=== PATIENT | male | born 1970 | race Caucasian/White ===

== ENCOUNTER 2016-09-13 21:08 | Emergency (ER) | payer OTHER ==
[2016-09-13] MEDS ORDERED: Lidocaine 1% 5ml(IM or SUTURE)(PAIN CLINIC) IJ ONE (21:32)
[2016-09-13] MEDS ORDERED: SULFAMETHOXAZOLE/TRIMETHOPRIM 1 EACH TABLET PO ONE (21:50)
--- NOTE | 2016-09-13 21:52 | ED Physician Documentation ---
Abscess - HISTORIAN Historian: patient - HPI Chief Complaint: Abscess Onset: days ago (5 days ago) Timing: worse Duration: worse Location: neck Context: Medication Exposure: none Context: Food Exposure: none Further Comments: yes (46 year old male patient presents with abscess on posterior neck. Patient states he had a "knot" on his neck, 5 days ago it became red and swollen. States it has doubled in size in the past 24 hours, now has white heads. No history of MRSA.) - ROS CONST: none CVS/RESP: none EYES/ENT: none GI/: none MS/SKIN/LYMPH: none NEURO/PSYCH: none - PAST HX Past History: none Other History: none Allergies/Adverse Reactions: Allergies Allergy/AdvReac Type Severity Reaction Status Date / Time No Known Drug Allergies Allergy Unverified 07/08/14 14:26 - SOCIAL HX Smoking History: cigarettes - FAMILY HX Family History: denies: none - REVIEWED ASSESSMENTS Nursing Assessment Reviewed: Yes Vitals Reviewed: Yes Procedures Site: posterior neck Blade Size: 11 I & D Procedure: Chlorhexidine Progress: Neck cleaned with chlorhexidine. Lidocaine injected in a wheel, incision with #11 blade, large amount of thick, purulent drainage with foul odor. Wound culture obtained. Packed with 1/4" iodoform gauze. Patient tolerated well. Dressing applied by nursing. ED Results Lab/Radiology - Orders Orders: ED Orders Category Date Time Status WOUND CULTURE Stat Lab 09/13/16 21:33 Ordered Lidocaine 1% 5ml(IM or SUTURE) [Xylocaine] Med 09/13/16 21:32 Once 50 mg IJ NOW ONE Sulfamethoxazole/Trimethoprim [Bactrim Ds] Med 09/13/16 21:50 Once 1 each PO NOW ONE Abscess Physical Exam - EXAM General Appearance: moderate distress Skin: warm,dry Location: posterior neck Character: erythematous, other (abscess 5 cm, raised, erythematous, with purulent drainage. ) Symptoms: warmth, tenderness, swelling, weeping (purulent drainage), inflammation Extremities: non-tender, nml ROM, no edema EENT: eyes nml inspection Respiratory: no resp distress, chest non-tender, breath sounds normal CVS: reg. rate & rhythm, heart sounds nml Neuro/Psych: oriented x3, CN's nml as tested, motor nml, sensation nml, mood/ affect nml Discharge Clincal Impression: Abscess, neck Additional Instructions: Leave your packing in place until you are seen by your primary care doctor. The area will likely continue to drain. You can change the outer dressing if it becomes wet or soiled. If the pack comes out, cover the area with a clean dry dressing. You may take ibuprofen or Tylenol as needed for pain. 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 A wound culture was sent today. Results will not be available for 72 hours. We will contact you only if you need additional antibiotics. Make an appointment to be seen by your primary care doctor TOMORROW for wound care and re-evaluation. Or do a walk in appointment after 4: 30 in the clinic Condition: Stable Disposition: 01 HOME, SELF-CARE Decision to Admit: NO Decision Time: 21:58
== END 2016-09-13 22:08 | disposition home or self-care (01) ==
LOC: ED 21:08
DX: L02.11 Cutaneous abscess of neck (principal)
CPT/HCPCS: 10060; 87070; 99283; A9270